=== PATIENT | female | born 1970 | race African-American/Black ===

== ENCOUNTER 2017-09-19 14:36 | Emergency (ER) | payer MEDICAID ==
[~2017-09-19] VITALS: Ht 160 cm; Wt 66.0 kg
[2017-09-19 15:27] VITALS: BP 109/76
[2017-09-19] MEDS ORDERED: DEXAMETHASONE 10 MG/ML VIAL IM ONE (15:30)
[2017-09-19] MEDS ORDERED: KETOROLAC 60MG/2ML VIAL IM ONE (15:30)
== END 2017-09-19 15:43 | disposition home or self-care (01) ==
LOC: ER 14:47
DX: M54.5 Low back pain (principal); J45.909 Unspecified asthma, uncomplicated; G89.29 Other chronic pain; R20.0 Anesthesia of skin; R53.1 Weakness
CPT/HCPCS: 96372; 99284; J1100; J1885

== ENCOUNTER 2017-12-21 21:53 | Emergency (ER) | payer MEDICAID ==
[~2017-12-21] VITALS: Ht 154.9 cm; Wt 73.0 kg
[2017-12-21] MEDS ORDERED: DEXAMETHASONE 10 MG/ML VIAL IM ONE (22:45)
[2017-12-21] MEDS ORDERED: KETOROLAC 60MG/2ML VIAL IM ONE (22:45)
[2017-12-21 23:05] VITALS: BP 121/79
[2017-12-21 23:34] LABS: CLARITY URINE CLEAR (CLEAR); COLOR URINE YELLOW (YELLOW); KETONES URINE NEGATIVE (NEGATIVE); LEUKOCYTE ESTERASE URINE TRACE (NEGATIVE); NITRITE URINE NEGATIVE (NEGATIVE); OCCULT BLOOD URINE NEGATIVE (NEGATIVE); PROTEIN URINE NEGATIVE (NEGATIVE); SPECIFIC GRAVITY URINE 1.015 (1.005-1.030); UROBILINOGEN URINE 0.2 E.U./dL (0.2-1.0)
== END 2017-12-22 | disposition left against medical advice (07) ==
LOC: ER 21:53
DX: G89.29 Other chronic pain (principal); M54.42 Lumbago with sciatica, left side; F17.200 Nicotine dependence, unspecified, uncomplicated; Z88.2 Allergy status to sulfonamides
CPT/HCPCS: 81003; 81025; 96372; 99284; J1100; J1885

== ENCOUNTER 2018-04-24 13:52 | Emergency (ER) | payer MEDICAID ==
[~2018-04-24] VITALS: Ht 154.9 cm; Wt 76.0 kg
[2018-04-24] MEDS ORDERED: LIDOCAINE HCL 1% 20ML VIAL (Pyxis) INJ INFIL ONE (16:45)
[2018-04-24] MEDS ORDERED: LIDOCAINE HCL/PF 1% 10 MG/ML 5ML VIAL IJ NR (17:00)
[2018-04-24] MEDS ORDERED: IBUPROFEN 800MG TABLET PO ONE (18:45)
[2018-04-24 19:07] VITALS: BP 115/82
== END 2018-04-24 19:10 | disposition home or self-care (01) ==
LOC: ER 15:32
DX: L02.411 Cutaneous abscess of right axilla (principal); Z88.2 Allergy status to sulfonamides
CPT/HCPCS: 10060; 99283; J3490; Z7610

== ENCOUNTER 2018-04-28 19:08 | Emergency (ER) | payer MEDICAID ==
[~2018-04-28] VITALS: Ht 154.9 cm; Wt 73.0 kg
[2018-04-28] MEDS ORDERED: CEFTRIAXONE SODIUM 1 G/VIAL IM ONE (21:00)
[2018-04-28 22:02] VITALS: BP 112/71
== END 2018-04-28 22:09 | disposition home or self-care (01) ==
LOC: ER 19:08
DX: L02.411 Cutaneous abscess of right axilla (principal); F32.9 Major depressive disorder, single episode, unspecified; F17.200 Nicotine dependence, unspecified, uncomplicated; Z88.2 Allergy status to sulfonamides
CPT/HCPCS: 96372; 99283; J0696; Z7610

== ENCOUNTER 2018-07-03 08:16 | Emergency (ER) | payer MEDICAID ==
[~2018-07-03] VITALS: Ht 154.9 cm; Wt 72.0 kg
[2018-07-03] MEDS ORDERED: KETOROLAC 60MG/2ML VIAL IM STA (10:28)
[2018-07-03] MEDS ORDERED: DEXAMETHASONE 10 MG/ML VIAL IM STA (10:28)
[2018-07-03 11:15] VITALS: BP 130/88
== END 2018-07-03 11:49 | disposition home or self-care (01) ==
LOC: ER 09:21
DX: M54.41 Lumbago with sciatica, right side (principal); M43.6 Torticollis; F32.9 Major depressive disorder, single episode, unspecified; Z88.2 Allergy status to sulfonamides
CPT/HCPCS: 96372; 99284; J1100; J1885

== ENCOUNTER 2018-07-04 23:35 | Emergency (ER) | payer MEDICAID ==
[~2018-07-04] VITALS: Ht 154.9 cm; Wt 68.0 kg
[2018-07-04 23:44] VITALS: BP 110/74
== END 2018-07-05 00:01 | disposition left against medical advice (07) ==
LOC: ER 23:35
DX: M54.2 Cervicalgia (principal); J45.909 Unspecified asthma, uncomplicated; M54.30 Sciatica, unspecified side; F17.200 Nicotine dependence, unspecified, uncomplicated; Z98.51 Tubal ligation status; Z53.21 Procedure and treatment not carried out due to patient leaving prior to being seen by health care provider

== ENCOUNTER 2018-07-27 17:22 | Emergency (ER) | payer MEDICAID ==
[~2018-07-27] VITALS: Ht 154.9 cm; Wt 75.0 kg
[2018-07-27] MEDS ORDERED: DEXAMETHASONE 10 MG/ML VIAL IM ONE (20:45)
[2018-07-27] MEDS ORDERED: KETOROLAC 60MG/2ML VIAL IM ONE (20:45)
[2018-07-27 21:05] VITALS: BP 111/87
== END 2018-07-27 21:12 | disposition home or self-care (01) ==
LOC: ER 17:33
DX: M54.30 Sciatica, unspecified side (principal); G89.29 Other chronic pain; M54.5 Low back pain; F12.10 Cannabis abuse, uncomplicated; F17.200 Nicotine dependence, unspecified, uncomplicated; Z98.51 Tubal ligation status; Z88.2 Allergy status to sulfonamides
CPT/HCPCS: 96372; 99283; J1100; J1885

== ENCOUNTER 2018-09-26 10:13 | Emergency (ER) | payer MEDICAID ==
[~2018-09-26] VITALS: Ht 154.9 cm; Wt 73.0 kg
[2018-09-26] MEDS ORDERED: DEXAMETHASONE 10 MG/ML VIAL IM ONE (11:30)
[2018-09-26] MEDS ORDERED: KETOROLAC 60MG/2ML VIAL IM ONE (11:30)
[2018-09-26 11:53] VITALS: BP 117/76
== END 2018-09-26 12:01 | disposition home or self-care (01) ==
LOC: ER 10:27
DX: M54.40 Lumbago with sciatica, unspecified side (principal); J45.909 Unspecified asthma, uncomplicated; F12.10 Cannabis abuse, uncomplicated; Z98.51 Tubal ligation status; Z88.2 Allergy status to sulfonamides
CPT/HCPCS: 96372; 99283; J1100; J1885

== ENCOUNTER 2018-10-18 09:54 | Emergency (ER) | payer MEDICAID ==
[~2018-10-18] VITALS: Ht 154.9 cm; Wt 71.0 kg
[2018-10-18] MEDS ORDERED: METHYLPREDNISOLONE SOD SUCC 125 MG/2 ML VIAL IM ONE (12:00)
[2018-10-18] MEDS ORDERED: KETOROLAC 30MG/ML VIAL IM ONE (12:00)
[2018-10-18 12:33] VITALS: BP 110/62
== END 2018-10-18 12:35 | disposition home or self-care (01) ==
LOC: ER 09:59
DX: M54.5 Low back pain (principal); J45.909 Unspecified asthma, uncomplicated; F12.10 Cannabis abuse, uncomplicated; Z98.51 Tubal ligation status; Z88.2 Allergy status to sulfonamides
CPT/HCPCS: 96372; 99283; J1885; J2930

== ENCOUNTER 2018-12-07 22:35 | Emergency (ER) | payer MEDICAID ==
[~2018-12-07] VITALS: Ht 154.9 cm; Wt 79.1 kg
[2018-12-07 23:15] VITALS: BP 107/81
[2018-12-08] MEDS ORDERED: METHYLPREDNISOLONE SOD SUCC 125 MG/2 ML VIAL IM STA (00:52)
[2018-12-08] MEDS ORDERED: KETOROLAC 60MG/2ML VIAL IM STA (00:52)
== END 2018-12-08 01:20 | disposition home or self-care (01) ==
LOC: ER 22:35
DX: M54.42 Lumbago with sciatica, left side (principal); M54.41 Lumbago with sciatica, right side; F17.200 Nicotine dependence, unspecified, uncomplicated; I95.9 Hypotension, unspecified; Z88.2 Allergy status to sulfonamides
CPT/HCPCS: 96372; 99283; J1885; J2930; Z7610

== ENCOUNTER 2019-03-02 01:08 | Emergency (ER) | payer MEDICAID ==
[~2019-03-02] VITALS: Ht 154.9 cm; Wt 78.0 kg
[2019-03-02] MEDS ORDERED: KETOROLAC 60MG/2ML VIAL IM ONE (02:45)
[2019-03-02] MEDS ORDERED: METHYLPREDNISOLONE SOD SUCC 125 MG/2 ML VIAL IM ONE (02:45)
[2019-03-02 03:24] VITALS: BP 131/71
== END 2019-03-02 03:24 | disposition home or self-care (01) ==
LOC: ER 01:08
DX: M54.42 Lumbago with sciatica, left side (principal); M54.41 Lumbago with sciatica, right side; F17.200 Nicotine dependence, unspecified, uncomplicated; Z88.2 Allergy status to sulfonamides
CPT/HCPCS: 96372; 99283; J1885; J2930

== ENCOUNTER 2019-05-22 08:53 | Emergency (ER) | payer MEDICAID ==
[~2019-05-22] VITALS: Ht 154.9 cm; Wt 73.0 kg
[2019-05-22] MEDS ORDERED: KETOROLAC 60MG/2ML VIAL IM ONE (09:30)
[2019-05-22] MEDS ORDERED: DEXAMETHASONE 10 MG/ML VIAL IM ONE (09:30)
[2019-05-22 09:44] VITALS: BP 124/60
== END 2019-05-22 10:33 | disposition home or self-care (01) ==
LOC: ER 08:53
DX: G89.29 Other chronic pain (principal); M54.40 Lumbago with sciatica, unspecified side; Z88.2 Allergy status to sulfonamides
CPT/HCPCS: 96372; 99283; J1100; J1885; Z7610

== ENCOUNTER 2020-04-02 02:57 | Emergency (ER) | payer MEDICAID ==
[~2020-04-02] VITALS: Ht 154.9 cm; Wt 75.0 kg
[2020-04-02 03:00] VITALS: BP 103/72
[2020-04-02] MEDS ORDERED: TRAMADOL 50MG TABLET PO ONE (03:15)
[2020-04-02] MEDS ORDERED: PREDNISONE 20MG TABLET PO ONE (03:15)
[2020-04-02] MEDS ORDERED: KETOROLAC 60MG/2ML VIAL IM ONE (03:30)
[2020-04-02] MEDS ORDERED: DEXAMETHASONE 4MG/ML 1ML VIAL IM ONE (03:30)
== END 2020-04-02 04:03 | disposition home or self-care (01) ==
LOC: ER 02:57
DX: M54.31 Sciatica, right side (principal); Z88.2 Allergy status to sulfonamides; Z98.51 Tubal ligation status
CPT/HCPCS: 96372; 99284; J1100; J1885; J7512

== ENCOUNTER 2020-12-28 07:54 | Emergency (ER) | payer MEDICAID ==
[~2020-12-28] VITALS: Ht 172.7 cm; Wt 70.0 kg
[2020-12-28] MEDS ORDERED: TRAM50TA3 MT (08:20)
[2020-12-28] MEDS ORDERED: IBUP-2028 MT (08:20)
[2020-12-28] MEDS ORDERED: METHYLPREDNISOLONE SOD SUCC 125 MG/2 ML VIAL IM ONE (08:30)
[2020-12-28] MEDS ORDERED: KETOROLAC 60MG/2ML VIAL IM ONE (08:30)
[2020-12-28] MEDS ORDERED: TRAMADOL 50MG TABLET PO ONE (08:30)
[2020-12-28 08:45] VITALS: BP 110/68
== END 2020-12-28 09:13 | disposition home or self-care (01) ==
LOC: ER 07:54
DX: G89.29 Other chronic pain (principal); M54.9 Dorsalgia, unspecified; Z88.2 Allergy status to sulfonamides
CPT/HCPCS: 96372; 99284; J1885; J2930; Z7610

== ENCOUNTER 2022-03-09 07:52 | Emergency (ER) | payer MEDICAID ==
[~2022-03-09] VITALS: Ht 162.6 cm; Wt 78.0 kg
[~2022-03-09 07:52] MED LIST: IBUP-2028 MT
[2022-03-09 07:55] VITALS: BP 127/89
[2022-03-09] MEDS ORDERED: DEXAMETHASONE 4MG/ML 1ML VIAL IM ONE (09:15)
[2022-03-09] MEDS ORDERED: KETOROLAC 60MG/2ML VIAL IM ONE (09:15)
== END 2022-03-09 10:04 | disposition home or self-care (01) ==
LOC: ER 07:52
DX: M54.40 Lumbago with sciatica, unspecified side (principal); Z98.51 Tubal ligation status; Z88.2 Allergy status to sulfonamides
CPT/HCPCS: 96372; 99284; J1100; J1885

== ENCOUNTER 2023-05-10 14:11 | Emergency (ER) | payer MEDICAID, OTHER ==
[~2023-05-10] VITALS: Ht 154.9 cm; Wt 73.0 kg
[2023-05-10 14:30] VITALS: BP 104/77; PULSE 88; RESP 16; TEMP 98; O2SAT 99
[2023-05-10] MEDS ORDERED: ONDANSETRON 4MG ODT PO ONE (14:30)
== END 2023-05-10 14:52 | disposition left against medical advice (07) ==
LOC: ER 14:11
DX: R11.2 Nausea with vomiting, unspecified (principal); Z53.21 Procedure and treatment not carried out due to patient leaving prior to being seen by health care provider
CPT/HCPCS: 99281

== ENCOUNTER 2024-07-20 12:02 | Emergency (ER) | payer OTHER ==
[~2024-07-20] VITALS: Ht 172.7 cm; Wt 75.0 kg
[2024-07-20] MEDS: PREDNISONE 20MG TABLET PO STA (13:14)
[2024-07-20] MEDS: AZITHROMYCIN 500 MG TABLET PO STA (13:14)
[2024-07-20 13:49] LABS: BASOPHILS % 0.4 % (0.0-2.0); EOSINOPHILS % 4.7 % (0.0-5.0); HEMATOCRIT. 38.7 % (36.0-48.0); LYMPHOCYTES % 19.9 % (20.0-50.0); MEAN CORPUSCULAR HEMOGLOBIN 28.3 pg (28.0-32.0); MEAN CORPUSCULAR HGB CONC 33.6 g/dL (31.0-37.0); MEAN CORPUSCULAR VOLUME 84.3 fL (81.0-99.0); MEAN PLATELET VOLUME 7.5 fl (7.4-10.4); MONOCYTES % 9.1 % (2.0-8.0); NEUTROPHILS % 65.9 % (40.0-76.0); PLATELET 341 x1000/uL (130-400); RED BLOOD CELL COUNT 4.59 mill/uL (4.2-5.4); RED CELL DISTRIBUTION WIDTH 14.9 % (11.6-14.6); WHITE BLOOD COUNT 8.9 x1000/uL (4.5-11.0)
[2024-07-20 13:53] VITALS: PULSE 95; RESP 20; O2SAT 95
[2024-07-20 13:53] LABS: CHLORIDE 109 mEq/L (98-107); SODIUM 140 mEq/L (136-145)
[2024-07-20] MEDS: ALBUTEROL (0.083%) 2.5MG/3ML NEB HHN STA (13:53)
[2024-07-20 13:54] LABS: CALCIUM 8.7 mg/dL (8.7-10.4); CARBON DIOXIDE 25 mEq/L (21-32)
[2024-07-20] MEDS: IPRATROPIUM BROMIDE (0.02%) 0.5MG/2.5ML NEB HHN STA (13:54)
[2024-07-20 13:59] LABS: CREATININE 0.6 mg/dL (0.6-1.0); GLUCOSE 94 mg/dL (70-105); UREA NITROGEN BLOOD 11 mg/dL (9-23)
[2024-07-20 14:04] LABS: INR 0.9; PROTHROMBIN TIME 10.6 sec (9.6-11.0)
[2024-07-20 14:12] LABS: TROPONIN I HIGH SENSITIVITY < 4 ng/L (3.0-34)
[2024-07-20] MEDS ORDERED: ALBU90AE INH (14:38)
[2024-07-20] MEDS ORDERED: P50 MT (14:38)
[2024-07-20] MEDS ORDERED: AZIT250T12 MT (14:40)
[2024-07-20 15:06] VITALS: BP 114/84; PULSE 88; RESP 19; TEMP 37.00296; O2SAT 95
== END 2024-07-20 15:07 | disposition home or self-care (01) ==
LOC: ER 12:02
DX: J44.1 Chronic obstructive pulmonary disease with (acute) exacerbation (principal); F41.9 Anxiety disorder, unspecified; F32.A Depression, unspecified; M54.30 Sciatica, unspecified side; K21.9 Gastro-esophageal reflux disease without esophagitis; F17.210 Nicotine dependence, cigarettes, uncomplicated; Z88.2 Allergy status to sulfonamides; Z98.51 Tubal ligation status
CPT/HCPCS: 80048; 83880; 85025; 85610; 84484; 36415; 71045; 94640; 93005; 99285; J7512; Z7610 ×4

== ENCOUNTER 2024-11-22 11:43 | Emergency (ER) | payer OTHER ==
[~2024-11-22] VITALS: Ht 154.9 cm; Wt 71.0 kg
[~2024-11-22 11:43] MED LIST changes: +ALBU90AE INH; +AZIT250T12 MT; +P50 MT
[2024-11-22 11:56] VITALS: O2SAT 97
[2024-11-22] MEDS: HYDROCODONE/ACETAMINOPHEN 5/325MG TABLET PO ONE (12:56)
[2024-11-22] MEDS: ACETAMINOPHEN 325MG TABLET PO ONE (13:06)
[2024-11-22 13:11] LABS: BASOPHILS % 0.5 % (0.0-2.0); EOSINOPHILS % 1.8 % (0.0-5.0); HEMATOCRIT. 40.9 % (36.0-48.0); HEMOGLOBIN. 13.4 g/dL (12.0-16.0); LYMPHOCYTES % 15.4 % (20.0-50.0); MEAN CORPUSCULAR HGB CONC 32.7 g/dL (31.0-37.0); MEAN CORPUSCULAR VOLUME 85.5 fL (81.0-99.0); MEAN PLATELET VOLUME 7.4 fl (7.4-10.4); MONOCYTES % 8.7 % (2.0-8.0); NEUTROPHILS % 73.6 % (40.0-76.0); PLATELET 352 x1000/uL (130-400); RED BLOOD CELL COUNT 4.78 mill/uL (4.2-5.4); RED CELL DISTRIBUTION WIDTH 14.6 % (11.6-14.6)
[2024-11-22 13:18] LABS: CARBON DIOXIDE 28 mEq/L (21-32); CHLORIDE 105 mEq/L (98-107); POTASSIUM 3.7 mEq/L (3.5-5.1); SODIUM 139 mEq/L (136-145)
[2024-11-22 13:19] LABS: CALCIUM 8.9 mg/dL (8.7-10.4)
[2024-11-22 13:23] LABS: CREATININE 0.7 mg/dL (0.6-1.0); GLUCOSE 108 mg/dL (70-105)
[2024-11-22 13:24] LABS: UREA NITROGEN BLOOD 9 mg/dL (9-23)
[2024-11-22 14:12] VITALS: BP 92/63; PULSE 84; RESP 16; O2SAT 97
[2024-11-22] MEDS ORDERED: CLIN-194 MT (14:23)
[2024-11-22] MEDS ORDERED: TOPUD PO (14:31)
[2024-11-22] MEDS: CLINDAMYCIN HCL 150MG CAPSULE PO SCH (14:37)
== END 2024-11-22 14:38 | disposition home or self-care (01) ==
LOC: ER 11:43
DX: I80.8 Phlebitis and thrombophlebitis of other sites (principal); J45.909 Unspecified asthma, uncomplicated; Z87.19 Personal history of other diseases of the digestive system; Z88.2 Allergy status to sulfonamides; Z98.51 Tubal ligation status
CPT/HCPCS: 36415; 80048; 83605; 84145; 85025; 93970; 99284

== ENCOUNTER 2025-08-01 19:27 | Emergency (ER) | payer OTHER ==
[~2025-08-01] VITALS: Ht 160 cm; Wt 75.0 kg
[~2025-08-01 19:27] MED LIST changes: +CLIN-194 MT; +TOPUD PO
[2025-08-01] MEDS: IPRATROPIUM/ALBUTEROL 0.5-3(2.5)MG/3ML NEB HHN ONE (21:05)
[2025-08-01 21:08] VITALS: PULSE 89; RESP 20; O2SAT 98
[2025-08-01] MEDS: DEXAMETHASONE 10 MG/ML VIAL IM ONE (21:20)
[2025-08-01] MEDS ORDERED: GUAI-450 MT (21:31)
[2025-08-01] MEDS ORDERED: P50 MT (21:31)
[2025-08-01] MEDS ORDERED: ALBU90AE INH (21:31)
[2025-08-01 21:49] VITALS: BP 112/95; PULSE 94; RESP 14; TEMP 37.5; O2SAT 95
== END 2025-08-01 21:51 | disposition home or self-care (01) ==
LOC: ER 19:27
DX: J06.9 Acute upper respiratory infection, unspecified (principal); B97.89 Other viral agents as the cause of diseases classified elsewhere; J44.1 Chronic obstructive pulmonary disease with (acute) exacerbation; Z88.2 Allergy status to sulfonamides; Z79.899 Other long term (current) drug therapy
CPT/HCPCS: 71045; 94640; 96372; 99283; J1100; Z7610 ×3; 94070